=== PATIENT | male | born 1950 | race American Indian/Alaskan Native ===

== ENCOUNTER 2019-02-22 12:25 | Inpatient (IN) | payer MEDICARE ==
[2019-02-22] MEDS ORDERED: NORMODYNE IV ONE (13:17)
[2019-02-22 14:16] LABS: INR 1.23 (0.87-1.13)
[2019-02-22 14:17] LABS: Partial Thromboplastin Time 31.9 Sec. (24.2-36.6)
[2019-02-22 14:27] LABS: Basophils # (Auto) 0.1 K/mm3 (0.0-0.1); Basophils % (Auto) 1.5 % (0.0-1.8); Eosinophils # (Auto) 0.1 K/mm3 (0.0-0.4); Eosinophils % (Auto) 3.5 % (0.0-4.3); Hematocrit 27.8 % (35.5-45.6); Hemoglobin 9.4 gm/dl (11.8-15.2); Lymphocytes # (Auto) 0.5 K/mm3 (1.2-5.4); Lymphocytes % (Auto) 12.1 % (13.4-35.0); Mean Corpuscular HGB Conc 34 % (32-34); Mean Corpuscular Volume 98 fl (84-94); Monocytes # (Auto) 0.3 K/mm3 (0.0-0.8); Monocytes % (Auto) 7.2 % (0.0-7.3); Platelet Count 157 K/mm3 (140-440); Red Blood Count 2.83 M/mm3 (3.65-5.03)
[2019-02-22 14:34] LABS: Calcium 8.6 mg/dL (8.4-10.2)
[2019-02-22 14:36] LABS: Alanine Aminotransferase 22 units/L (7-56); Albumin 3.7 g/dL (3.9-5); BUN/Creatinine Ratio 7; Blood Urea Nitrogen 106 mg/dL (9-20); Calcium 8.6 mg/dL (8.4-10.2); Hemolysis Index 12
[2019-02-22] MEDS ORDERED: HumuLIN R IV ONE (15:14)
[2019-02-22] MEDS ORDERED: D50W (25GM) Syringe IV ONE (15:14)
[2019-02-22] MEDS ORDERED: KIONEX PO ONE (15:14)
--- NOTE | 2019-02-22 15:24 | XRay Report ---
AP CHEST: HISTORY: Short of breath No comparison. Mild cardiomegaly and central pulmonary venous congestion are identified. There is poor visualization of the left hemidiaphragm suggesting infiltrate, atelectasis or small effusion. Otherwise the lungs are clear. The bony thorax is grossly intact. IMPRESSION: Mild cardiomegaly and pulmonary venous congestion. Left lower lobe opacity as described.
[2019-02-22] MEDS ORDERED: CALCIUM GLUCONATE 1,000 MG in NACL 0.9% 100 ML IV ONE (15:51)
--- NOTE | 2019-02-22 15:58 | Consultation ---
History of Present Illness - History of Present Illness 68 year old gentleman with medical history signficant for HTN, DM type 2 with complications, ESRD on hemodialysis MWF at [facility] presenting with complaints of missed hemodialysis for several days. He reports bleeding per rectum has had this before but symptoms have been worsen in the past week. admits to weakness ,fatigue and lethargy , also has shortness of breath. Denies any lower extremity edema. associated orthpnea or PND.continues to make urine. Medications and Allergies Allergies Allergy/AdvReac Type Severity Reaction Status Date / Time Androgenic Anabolic Steroid Allergy Severe Hives Verified 02/22/19 12:57 Active Meds: Active Medications Nicardipine HCl 50 mg/ Sodium (Chloride) 250 mls @ 25 mls/hr IV TITR EDGAR; Protocol Calcium Chloride 1,000 mg/ (Sodium Chloride) 110 mls @ 220 mls/hr IV ONCE ONE Stop: 02/22/19 16:30 Calcium Gluconate 1,000 mg/ (Sodium Chloride) 110 mls @ 660 mls/hr IV ONCE ONE Stop: 02/22/19 16:00 Review of Systems Constitutional: no weight loss, no weight gain Ears, nose, mouth and throat: no deferred, no ear pain Cardiovascular: orthopnea, shortness of breath, dyspnea on exertion, paroxysmal nocturnal dyspnea, no chest pain Respiratory: cough Gastrointestinal: BRBPR, no abdominal pain, no nausea, no vomiting Genitourinary Male: hematuria, no dysuria Musculoskeletal: no neck stiffness, no neck pain Integumentary: no deferred Neurological: no head injury Psychiatric: no anxiety, no memory loss Endocrine: no cold intolerance, no heat intolerance Hematologic/Lymphatic: no easy bruising, no easy bleeding Exam - Vital Signs Vital signs: Vital Signs Temp Pulse Resp BP Pulse Ox 98.5 F 105 H 18 213/107 97 02/22/19 12:30 02/22/19 12:30 02/22/19 12:30 02/22/19 12:30 02/22/19 12:30 - General Appearance General appearance: well-developed, well-nourished EENT: ATNC, PERRL Neck: Present: neck supple Respiratory: Rales, Decreased Breath Sounds, Using Accesory Muscles Heart: regular, S1S2 Gastrointestinal: Present: normal, normoactive bowel sounds Integumentary: no rash Neurologic: no focal deficit, alert and oriented x3 Psychiatric: mood/affect appropriate Results - Lab Results 02/22/19 13:14 02/22/19 13:14 Most recent lab results Calcium 8.6 mg/dL (8.4-10.2) 02/22/19 13:14 Calcium 8.6 mg/dL (8.4-10.2) 02/22/19 13:14 Phosphorus 8.20 mg/dL (2.5-4.5) H 02/22/19 13:14 - Image Kidney/bladder ultrasound: other (I reviewed CXR with pulmonary congestion. ) Assessment and Plan - Patient Problems (1) End stage renal disease Current Visit: Yes Status: Acute Plan to address problem: End-stage renal disease on hemodialysis dialysis access right arm aVF We'll initiate hemodialysis ultrafiltration goal 2-3 L (2) Hyperkalemia, diminished renal excretion Current Visit: Yes Status: Acute Plan to address problem: Hyperkalemia severe Potassium 7.2 we'll give calcium gluconate Obtain EKG Receive insulin and dextrose Emergency hemodialysis (3) Metabolic acidosis Current Visit: Yes Status: Acute Plan to address problem: Metabolic acidosis in the setting of renal failure and missed hemodialysis Will initiate hemodialysis (4) Hypertensive urgency, malignant Current Visit: Yes Status: Acute Plan to address problem: HTN urgency: received hydralazine and labetalol IV will initiate Urgent hemodialysis intiatie oral medications.
[2019-02-22] MEDS ORDERED: CARDENE 50 MG in NACL 0.9% 250ML 230 ML IV SCH (16:00)
--- NOTE | 2019-02-22 16:00 | Emergency Department Report ---
ED GI Bleed HPI - General Chief complaint: GI Bleed Stated complaint: BLOOD IN STOOL/DIALYSIS Time Seen by Provider: 02/22/19 13:12 Source: patient, family, EMS Mode of arrival: Stretcher Limitations: No Limitations - History of Present Illness Initial comments: 68-year-old -[place] male with history of end-stage renal disease on dialysis, history of labile hypertension, presented to ED with elevated blood pressure, stool streaked with bright red blood, for the past week. He was seen by his primary care doctor who discontinue his aspirin 81 mg daily, due to the bleeding. He also was sent to [facility] for a CAT scan without contrast which showed bilateral moderate pleural effusion left more than right, small amount of ascites in the pelvis. Otherwise negative CT of the abdomen and pelvis. Today at dialysis his blood pressure was found to be 220s over 120s, therefore he was sent to ED for further evaluation. MD complaint: blood on toilet paper, gross hematochezia Onset/Timin -: week(s) Radiation: none Severity scale (0 -10): 0 Quality: painless Consistency: constant Improves with: none Worsens with: none Associated Symptoms: epistaxis, headaches - Related Data Allergies Allergy/AdvReac Type Severity Reaction Status Date / Time Androgenic Anabolic Steroid Allergy Severe Hives Verified 02/22/19 12:57 ED Review of Systems ROS: Stated complaint: BLOOD IN STOOL/DIALYSIS Other details as noted in HPI Comment: All other systems reviewed and negative ENT: denies: ear pain, throat pain Cardiovascular: denies: chest pain, palpitations, dyspnea on exertion Gastrointestinal: hematochezia. denies: abdominal pain Genitourinary: denies: urgency, dysuria Musculoskeletal: denies: back pain Skin: denies: rash, lesions ED Past Medical Hx - Social History Smoking Status: Former Smoker ED Physical Exam - General Limitations: No Limitations General appearance: alert - Head Head exam: Present: atraumatic - Eye Eye exam: Present: normal appearance Pupils: Present: normal accommodation - ENT ENT exam: Present: normal exam, normal orophraynx - Neck Neck exam: Present: normal inspection - Respiratory Respiratory exam: Present: normal lung sounds bilaterally - Cardiovascular Cardiovascular Exam: Present: regular rate, normal rhythm - GI/Abdominal GI/Abdominal exam: Present: soft - Rectal Rectal exam: Present: heme (+) stool - Extremities Exam Extremities exam: Present: normal inspection, full ROM, tenderness ED Course Vital Signs 02/22/19 02/22/19 02/22/19 12:30 12:43 12:45 Temperature 98.5 F Pulse Rate 105 H Respiratory 18 Rate Blood Pressure 213/107 213/107 O2 Sat by Pulse 97 97 97 Oximetry 02/22/19 02/22/19 02/22/19 13:00 13:15 13:33 Temperature Pulse Rate 101 H 103 H Respiratory 26 H 25 H Rate Blood Pressure 214/118 214/118 214/118 O2 Sat by Pulse 99 99 97 Oximetry 02/22/19 02/22/19 02/22/19 13:41 13:45 14:00 Temperature Pulse Rate 99 H 95 H 93 H Respiratory 22 21 Rate Blood Pressure 236/121 236/121 187/101 O2 Sat by Pulse 100 96 Oximetry 02/22/19 02/22/19 02/22/19 14:15 14:30 14:45 Temperature Pulse Rate 92 H 94 H 93 H Respiratory 18 21 15 Rate Blood Pressure 187/101 202/113 202/113 O2 Sat by Pulse 98 95 98 Oximetry 02/22/19 02/22/19 02/22/19 15:00 15:15 15:30 Temperature Pulse Rate Respiratory Rate Blood Pressure 204/111 204/111 209/116 O2 Sat by Pulse 94 99 96 Oximetry 02/22/19 02/22/19 02/22/19 15:45 15:47 16:01 Temperature Pulse Rate 94 H Respiratory 24 Rate Blood Pressure 209/116 204/111 O2 Sat by Pulse 96 96 96 Oximetry 02/22/19 02/22/19 02/22/19 16:15 16:30 16:37 Temperature Pulse Rate 96 H 101 H Respiratory 23 29 H Rate Blood Pressure 193/89 190/95 190/95 O2 Sat by Pulse 96 97 Oximetry - Reevaluation(s) Reevaluation #1: 02/22/19 1400 Will be going to dialysis, case discussed with nephrology. ED Medical Decision Making - Lab Data Result diagrams: 02/22/19 13:14 02/22/19 13:14 - EKG Data -: EKG Interpreted by Ca EKG shows normal: sinus rhythm - Radiology Data Radiology results: report reviewed, image reviewed - Medical Decision Making 68-year-old -[place] male with history of end-stage renal disease on dialysis, history of labile hypertension, presented to ED with elevated blood pressure, stool streaked with bright red blood, for the past week. He was seen by his primary care doctor who discontinue his aspirin 81 mg daily, due to the bleeding. He also was sent to [facility] associates for a CAT scan without contrast which showed bilateral moderate pleural effusion left more than right, small amount of ascites in the pelvis. Otherwise negative CT of the abdomen and pelvis. Today at dialysis his blood pressure was found to be 220s over 120s, therefore he was sent to ED for further evaluation. Rectal exam showed blood streak stool Discussed case with nephrology, patient will be going for emergent dialysis is due to potassium was 7.4. In ED patient received kayaxelate 60mg po, insulin 5un iv, d50, camron chloride 1gm. Critical Care Time: Yes Critical care time in (mins) excluding proc time.: 30 Critical care attestation.: If time is entered above; I have spent that time in minutes in the direct care of this critically ill patient, excluding procedure time. ED Disposition Clinical Impression: Acute hyperkalemia Fluid overload Qualifiers: Hypervolemia type: other Qualified Code(s): E87.79 - Other fluid overload Disposition: DC-09 OP ADMIT IP TO THIS HOSP Is pt being admited?: Yes Does the pt Need Aspirin: No Condition: Critical
[2019-02-22] MEDS ORDERED: CALCIUM CHLORIDE 1,000 MG in NACL 0.9% 100 ML IV ONE (16:01)
[2019-02-22] MEDS ORDERED: APRESOLINE IV ONE (16:21)
[2019-02-22] MEDS ORDERED: APRESOLINE ONE (16:36)
[2019-02-22 18:20] LABS: Hepatitis B Surface Antigen Indeterminate (Negative); Hepatitis C Virus Antibody Reactive (NonReactive)
[2019-02-22] MEDS: NORMODYNE IV PRN (19:53)
[2019-02-22] MEDS ORDERED: SODIUM CHLORIDE FLUSH SYRINGE 10 ML IV PRN (21:43)
[2019-02-22] MEDS ORDERED: DILAUDID IV PRN (21:43)
[2019-02-22] MEDS ORDERED: ZOFRAN IV PRN (21:43)
[2019-02-22] MEDS ORDERED: TYLENOL PO PRN (21:43)
[2019-02-22] MEDS: NORVASC PO SCH (22:10)
[2019-02-22] MEDS: SODIUM CHLORIDE FLUSH SYRINGE 10 ML IV SCH (22:24)
[2019-02-22] MEDS: PROTONIX 80 MG in NACL 0.9% 100 ML IV SCH (22:51)
[2019-02-22] MEDS: APRESOLINE IV PRN (22:51)
[2019-02-22 23:59] LABS: Hematocrit 28.2 % (35.5-45.6); Hemoglobin 10.1 gm/dl (11.8-15.2)
[2019-02-23 00:44] LABS: Calcium 9.9 mg/dL (8.4-10.2)
[2019-02-23 06:00] LABS: Basophils % (Auto) 0.7 % (0.0-1.8); Eosinophils % (Auto) 0.9 % (0.0-4.3); Hematocrit 29.2 % (35.5-45.6); Hemoglobin 9.8 gm/dl (11.8-15.2); Lymphocytes # (Auto) 0.4 K/mm3 (1.2-5.4); Lymphocytes % (Auto) 7.9 % (13.4-35.0); Mean Corpuscular HGB Conc 34 % (32-34); Mean Corpuscular Volume 95 fl (84-94); Monocytes # (Auto) 0.5 K/mm3 (0.0-0.8); Monocytes % (Auto) 8.5 % (0.0-7.3); Platelet Count 170 K/mm3 (140-440); Red Blood Count 3.07 M/mm3 (3.65-5.03); Red Cell Distribution Width 16.6 % (13.2-15.2)
[2019-02-23 06:26] LABS: Albumin 3.6 g/dL (3.9-5); Calcium 9.1 mg/dL (8.4-10.2)
--- NOTE | 2019-02-23 06:41 | History and Physical Report ---
History of Present Illness Date of examination: 02/22/19 Date of admission: 02/22/19 15:57 Chief complaint: Missed HD High BP --sent from dialysis center History of present illness: 68-year-old -Bangl[place] male with history of end-stage renal disease on dialysis, history of labile hypertension, presented to ED with elevated blood pressure, stool streaked with bright red blood, for the past week. He was seen by his primary care doctor who discontinue his aspirin 81 mg daily, due to the bleeding. He also was sent to [facility] associates for a CAT scan without contrast which showed bilateral moderate pleural effusion left more than right, small amount of ascites in the pelvis. Otherwise negative CT of the abdomen and pelvis. Today at dialysis his blood pressure was found to be 220s over 120s, therefore he was sent to ED for further evaluation. Past History Past Medical History: ESRD, hypertension Past Surgical History: Other Social history: smoking Family history: hypertension Medications and Allergies Allergies Allergy/AdvReac Type Severity Reaction Status Date / Time Androgenic Anabolic Steroid Allergy Severe Hives Verified 02/22/19 12:57 Active Meds: Active Medications Acetaminophen (Tylenol) 650 mg PO Q4H PRN PRN Reason: Pain MILD(1-3)/Fever >100.5/MICHELE Amlodipine Besylate (Norvasc) 5 mg PO QDAY EDGAR Last Admin: 02/22/19 22:10 Dose: 5 mg Documented by: Hydralazine HCl (Apresoline) 10 mg IV Q3H PRN PRN Reason: Blood Pressure Last Admin: 02/22/19 22:51 Dose: 10 mg Documented by: Hydromorphone HCl (Dilaudid) 0.5 mg IV Q3H PRN PRN Reason: Pain , Severe (7-10) Nicardipine HCl 50 mg/ Sodium (Chloride) 250 mls @ 25 mls/hr IV TITR EDGAR; Protocol Pantoprazole Sodium 80 mg/ (Sodium Chloride) 100 mls @ 10 mls/hr IV DIRECT EDGAR Last Admin: 02/22/19 22:51 Dose: 8 mg/hr, 10 mls/hr Documented by: Labetalol HCl (Normodyne) 20 mg IV PRETR PRN PRN Reason: Blood Pressure Last Admin: 02/22/19 19:53 Dose: 20 mg Documented by: Ondansetron HCl (Zofran) 4 mg IV Q8H PRN PRN Reason: Nausea And Vomiting Sodium Chloride (Sodium Chloride Flush Syringe 10 Ml) 10 ml IV BID EDGAR Last Admin: 02/22/19 22:24 Dose: 10 ml Documented by: Sodium Chloride (Sodium Chloride Flush Syringe 10 Ml) 10 ml IV PRN PRN PRN Reason: LINE FLUSH Review of Systems All systems: negative Gastrointestinal: BRBPR, melena Exam - Constitutional Vitals: Temp Pulse Resp BP Pulse Ox 98.3 F 104 H 18 112/66 97 02/23/19 05:02 02/23/19 05:02 02/23/19 05:02 02/23/19 05:02 02/23/19 05:02 General appearance: Present: no acute distress, well-nourished - EENT Eyes: Present: PERRL ENT: hearing intact, clear oral mucosa - Neck Neck: Present: supple, normal ROM - Respiratory Respiratory effort: normal Respiratory: bilateral: CTA - Cardiovascular Heart rate: 78 Rhythm: regular Heart Sounds: Present: S1 & S2. Absent: rub, click - Extremities Extremities: no ischemia, pulses intact, pulses symmetrical, No edema Peripheral Pulses: within normal limits - Abdominal General gastrointestinal: Present: soft, non-tender, non-distended, normal bowel sounds Male genitourinary: Present: normal - Rectal Rectal Exam: deferred - Integumentary Integumentary: Present: clear, warm, dry - Musculoskeletal Musculoskeletal: gait normal, strength equal bilaterally - Psychiatric Psychiatric: appropriate mood/affect, intact judgment & insight - Neurologic Neurologic: CNII-XII intact, moves all extremities - Allied Health Allied health notes reviewed: nursing, case management Results - Labs CBC & Chem 7: 02/23/19 05:39 02/23/19 05:39 Labs: Laboratory Last Values WBC 5.5 K/mm3 (4.5-11.0) 02/23/19 05:39 RBC 3.07 M/mm3 (3.65-5.03) L 02/23/19 05:39 Hgb 9.8 gm/dl (11.8-15.2) L 02/23/19 05:39 Hct 29.2 % (35.5-45.6) L 02/23/19 05:39 MCV 95 fl (84-94) H 02/23/19 05:39 MCH 32 pg (28-32) 02/23/19 05:39 MCHC 34 % (32-34) 02/23/19 05:39 RDW 16.6 % (13.2-15.2) H 02/23/19 05:39 Plt Count 170 K/mm3 (140-440) 02/23/19 05:39 Lymph % (Auto) 7.9 % (13.4-35.0) L 02/23/19 05:39 [place] % (Auto) 8.5 % (0.0-7.3) H 02/23/19 05:39 Eos % (Auto) 0.9 % (0.0-4.3) 02/23/19 05:39 Baso % (Auto) 0.7 % (0.0-1.8) 02/23/19 05:39 Lymph # 0.4 K/mm3 (1.2-5.4) L 02/23/19 05:39 [place] # 0.5 K/mm3 (0.0-0.8) 02/23/19 05:39 Eos # 0.0 K/mm3 (0.0-0.4) 02/23/19 05:39 Baso # 0.0 K/mm3 (0.0-0.1) 02/23/19 05:39 Seg Neutrophils % 82.0 % (40.0-70.0) H 02/23/19 05:39 Seg Neutrophils # 4.5 K/mm3 (1.8-7.7) 02/23/19 05:39 PT 15.2 Sec. (12.2-14.9) H 02/22/19 13:23 INR 1.23 (0.87-1.13) H 02/22/19 13:23 APTT 31.9 Sec. (24.2-36.6) 02/22/19 13:23 Sodium 134 mmol/L (137-145) L 02/23/19 05:39 Potassium 4.5 mmol/L (3.6-5.0) 02/23/19 05:39 Chloride 91.3 mmol/L (98-107) L 02/23/19 05:39 Carbon Dioxide 24 mmol/L (22-30) 02/23/19 05:39 23 mmol/L 02/23/19 05:39 BUN 32 mg/dL (9-20) H 02/23/19 05:39 6.7 mg/dL (0.8-1.5) H 02/23/19 05:39 Estimated GFR 10 ml/min 02/23/19 05:39 5 % 02/23/19 05:39 Glucose 96 mg/dL (75-100) 02/23/19 05:39 5.2 % (4-6) 02/22/19 23:36 Calcium 9.1 mg/dL (8.4-10.2) 02/23/19 05:39 Phosphorus 8.20 mg/dL (2.5-4.5) H 02/22/19 13:14 0.60 mg/dL (0.1-1.2) 02/23/19 05:39 AST 36 units/L (5-40) 02/23/19 05:39 ALT 46 units/L (7-56) 02/23/19 05:39 94 units/L (35-129) 02/23/19 05:39 NT-Pro-B Natriuret Pep > 19719 pg/mL (0-900) H 02/22/19 13:14 6.6 g/dL (6.3-8.2) 02/23/19 05:39 3.6 g/dL (3.9-5) L 02/23/19 05:39 1.2 % 02/23/19 05:39 Hepatitis A IgM Ab Non-reactive (NonReactive) 02/22/19 17:34 Hep Bs Antigen Non-reactive (Negative) 02/22/19 21:40 Hep B Core IgM Ab Non-reactive (NonReactive) 02/22/19 17:34 Reactive (NonReactive) A 02/22/19 17:34 Short CBC 02/22/19 02/22/19 02/23/19 Range/Units 13:14 23:36 05:39 WBC 4.2 L 5.5 (4.5-11.0) K/mm3 Hgb 9.4 L 10.1 L 9.8 L (11.8-15.2) gm/dl Hct 27.8 L 28.2 L 29.2 L (35.5-45.6) % Plt Count 157 170 (140-440) K/mm3 BMP 06/02/22/19 02/22/19 13:14 13:14 23:36 Sodium 133 L 133 L 138 Potassium 7.1 H* 7.2 H* 3.9 D Chloride 92.7 L 93.2 L 93.3 L Carbon Dioxide 16 L 16 L 22 BUN 106 H 103 H 28 H Creatinine 14.5 H 14.5 H 5.8 H D Glucose 148 H 151 H 93 Calcium 8.6 8.6 9.9 D 02/23/19 05:39 Sodium 134 L Potassium 4.5 Chloride 91.3 L Carbon Dioxide 24 BUN 32 H Creatinine 6.7 H Glucose 96 Calcium 9.1 Liver Function 02/22/19 02/23/19 Range/Units 13:14 05:39 Total Bilirubin 0.30 0.60 (0.1-1.2) mg/dL AST 12 36 (5-40) units/L ALT 22 46 (7-56) units/L Alkaline Phosphatase 86 94 (35-129) units/L Albumin 3.7 L 3.6 L (3.9-5) g/dL - Imaging and Cardiology EKG: report reviewed Chest x-ray: report reviewed Imaging and Cardiology: CXR IMPRESSION: Mild cardiomegaly and pulmonary venous congestion. Left lower lobe opacity as described. Assessment and Plan Advance Directives: Yes (Full code) VTE prophylaxis?: Mechanical Plan of care discussed with patient/family: Yes - Patient Problems (1) Hypertensive urgency, malignant Current Visit: Yes Status: Acute Plan to address problem: IV Hydralazine q3 h Prn Cont antihypertensives Catapress patch initiated (2) GI bleed Current Visit: Yes Status: Acute Qualifiers: GI bleed type/associated pathology: unspecified gastrointestinal hemorrhage type Qualified Code(s): K92.2 - Gastrointestinal hemorrhage, unspecified Plan to address problem: Monitor H/h GI consilt IV protonix (3) Acute hyperkalemia Current Visit: Yes Status: Acute Plan to address problem: Being rtaken for emergent HD Low K bath (4) End stage renal disease Current Visit: Yes Status: Chronic Plan to address problem: COnt HD (5) DVT prophylaxis Current Visit: Yes Status: Acute Plan to address problem: On SCD's
[2019-02-23] MEDS: PROTONIX 80 MG in NACL 0.9% 100 ML IV SCH (08:17)
[2019-02-23] MEDS ORDERED: CATAPRES-TTS PATCH TD SCH (10:00)
[2019-02-23] MEDS: SODIUM CHLORIDE FLUSH SYRINGE 10 ML IV SCH ×2 (10:09→22:43)
[2019-02-23] MEDS: NORVASC PO SCH (10:09)
--- NOTE | 2019-02-23 11:54 | Progress Note ---
Subjective Interval history: Patient was seen today for follow-up on multiple renal related issues Events of this hospitalization noted Admitted with missing dialysis treatment severely hyperkalemic has had metabolic acidosis Noncompliant patient Patient denies having any chest pain pressure or shortness of breath Vitals labs intake output medications were reviewed Social history: Reviewed Allergies: Reviewed Family history: Reviewed Physical examination HEENT: Oral mucosa moist no pallor or icterus Neck: Supple no JVD Chest: Clear to auscultation anteriorly CVS: Regular rate and rhythm S1 and S2 heard Abdomen: Soft nontender no suprapubic masses no organomegaly appreciable Extremity: Dry skin less than 1+ peripheral edema Musculoskeletal: No joint effusion noted in knees and ankle Neurological: Alert awake Dermatology: No petechial rashes Psychiatry: No evidence of any agitation and aggression noted Assessment and plan; End-stage renal disease: Patient will continue with hemodialysis on Tuesday and Tuesday schedule, current access is a right arm AV fistula He will need second hemodialysis treatment today Patient admitted after missing several days of dialysis Reported to have bleeding per rectum: Needs follow-up with gastroenterology Anemia in end-stage renal disease: Monitor hemoglobin and hematocrit, eryth ropoietin as needed Secondary hyperparathyroidism periodically check phosphorus and PTH level, goal phosphorus less than 5.5 PTH less than 600, educated about renal osteodystrophy Hypertension and volume: , Adjust medications as needed, ultrafiltration as tolerated keep systolic blood pressure above 100 Hyperkalemia patient's admission potassium was 7.2 bicarbonate was 16 BUN 106 creatinine was 14.5 Malnutrition risk: High please consider high protein diet as well as nutrition follow-up, patient needs at least 1.5 g protein per KG body weight Dialysis access: Currently working well, discussed about monitoring Discussed about issues with noncompliance with dialysis and high mortality risk Dietary counseling and education: Done at length to improve outcome with end- stage renal disease Patient was also educated about the hospital related comorbidities Overall prognosis appears to be very poor, patient is high mortality risk and have adequately counseled and educated this patient is prognosis is going to depend on his compliance have educated him to take responsibility for his health and educated himself, Patient was adequately counseled and educated regarding multiple renal related issues Pertinent lab findings were discussed with patient and patient does exhibit good understanding of renal issues. We'll continue to follow and make recommendation from renal standpoint Objective - Vital Signs Vital signs: Vital Signs - 12hr 02/23/19 02/23/19 02/23/19 05:02 07:30 07:31 Temperature 98.3 F 98.3 F 98.3 F Pulse Rate 104 H 104 H Respiratory 18 18 18 Rate Blood Pressure 112/66 171/88 O2 Sat by Pulse 97 96 Oximetry 02/23/19 10:47 Temperature 98.7 F Pulse Rate 101 H Respiratory 18 Rate Blood Pressure 175/99 O2 Sat by Pulse 96 Oximetry - Lab 02/23/19 05:39 02/23/19 05:39 Most recent lab results Calcium 9.1 mg/dL (8.4-10.2) 02/23/19 05:39 Phosphorus 8.20 mg/dL (2.5-4.5) H 02/22/19 13:14 Medications & Allergies - Medications Allergies/Adverse Reactions: Allergies Androgenic Anabolic Steroid Allergy (Severe, Verified 02/22/19 12:57) Hives Active Medications: Generic Name Dose Route Start Last Admin Trade Name Freq PRN Reason Stop Dose Admin Acetaminophen 650 mg 02/22/19 21:43 Tylenol PO Q4H PRN Pain MILD(1-3)/Fever >100.5/MICHELE Amlodipine Besylate 5 mg 02/22/19 21:00 02/23/19 10:09 Norvasc PO 5 mg QDAY EDGAR Administration Clonidine HCl 0.1 mg 02/23/19 10:00 02/23/19 10:09 Catapres-Tts Patch TD 0.1 mg Fr EDGAR Administration Hydralazine HCl 10 mg 02/22/19 21:46 02/22/19 22:51 Apresoline IV 10 mg Q3H PRN Administration Blood Pressure Hydromorphone HCl 0.5 mg 02/22/19 21:43 Dilaudid IV Q3H PRN Pain , Severe (7-10) Nicardipine HCl 50 mg/ Sodium 250 mls @ 25 mls/hr 02/22/19 16:00 Chloride IV TITR EDGAR Protocol 5 MG/HR Pantoprazole Sodium 80 mg/ 100 mls @ 10 mls/hr 02/22/19 22:00 02/23/19 08:17 Sodium Chloride IV 8 mg/hr DIRECT EDGAR 10 mls/hr Administration 8 MG/HR Labetalol HCl 20 mg 02/22/19 17:29 02/22/19 19:53 Normodyne IV 20 mg PRETR PRN Administration Blood Pressure Ondansetron HCl 4 mg 02/22/19 21:43 Zofran IV Q8H PRN Nausea And Vomiting Sodium Chloride 10 ml 02/22/19 22:00 02/23/19 10:09 Sodium Chloride Flush Syringe 10 Ml IV 10 ml BID EDGAR Administration Sodium Chloride 10 ml 02/22/19 21:43 Sodium Chloride Flush Syringe 10 Ml IV PRN PRN LINE FLUSH
[2019-02-23 15:12] LABS: Hematocrit 29.8 % (35.5-45.6); Hemoglobin 9.9 gm/dl (11.8-15.2)
--- NOTE | 2019-02-23 15:21 | Gastroenterology Consultation ---
<BRIANA MCKENNA - Last Filed: 02/23/19 15:52> History of Present Illness - Reason for Consult Consult date: 02/23/19 GI bleed Requesting physician: JOSE MANUEL DAY - History of Present Illness Patient is a 68 y/o male with PMH of ESRD on HD, HTN, prostate cancer (s/p radiation; 2012 or 2013 per daughter), and medical non-compliance who was adm itted after missing dialysis with hypertensive urgency and acute hyperkalemia. GI has been consulted for GI bleed 2/ patient c/o blood streaked stool. This afternoon, patient was resting in bed w/o acute distress and family at bedside. He reports bright red blood mixed with stool, on TP, and in toilet for the last coupl of days (unable to give exact onset of bleeding; noted to be a poor historian). No BM or signs of bleeding so far today. Admits to wt loss but is unable to tell my amount or time frame. Denies fever, CP, SOB, abd pain, N/V, hematemesis, melena, diarrhea, or constipation. Was previously taking daily ASA at home but denies hx of PUD or liver disease. No hx or Fhx of IBD or colon CA. Patient daughter states that the patient underwent a recent colonoscopy at [facility] (~6-8 months ago) with negative results (records unavailable). She is unsure if he also had an EGD at that time. According to chart review, patient has a recent abd CT that showed showed bilateral moderate pleural effusion left more than right and small amount of ascites in the pelvis, otherwise negative. Past History Past Medical History: ESRD, hypertension, other (prostate cancer (s/p radiation in 2012 or 2013 per daughter report)) Past Surgical History: Other Social history: smoking Family history: hypertension Medications and Allergies Allergies Allergy/AdvReac Type Severity Reaction Status Date / Time Androgenic Anabolic Steroid Allergy Severe Hives Verified 02/22/19 12:57 Active Meds: Active Medications Acetaminophen (Tylenol) 650 mg PO Q4H PRN PRN Reason: Pain MILD(1-3)/Fever >100.5/MICHELE Amlodipine Besylate (Norvasc) 5 mg PO QDAY EDGAR Last Admin: 02/23/19 10:09 Dose: 5 mg Documented by: Clonidine HCl (Catapres-Tts Patch) 0.1 mg TD Fr EDGAR Last Admin: 02/23/19 10:09 Dose: 0.1 mg Documented by: Hydralazine HCl (Apresoline) 10 mg IV Q3H PRN PRN Reason: Blood Pressure Last Admin: 02/22/19 22:51 Dose: 10 mg Documented by: Hydromorphone HCl (Dilaudid) 0.5 mg IV Q3H PRN PRN Reason: Pain , Severe (7-10) Nicardipine HCl 50 mg/ Sodium (Chloride) 250 mls @ 25 mls/hr IV TITR EDGAR; Prot ocol Pantoprazole Sodium 80 mg/ (Sodium Chloride) 100 mls @ 10 mls/hr IV DIRECT EDGAR Last Admin: 02/23/19 08:17 Dose: 8 mg/hr, 10 mls/hr Documented by: Labetalol HCl (Normodyne) 20 mg IV PRETR PRN PRN Reason: Blood Pressure Last Admin: 02/22/19 19:53 Dose: 20 mg Documented by: Ondansetron HCl (Zofran) 4 mg IV Q8H PRN PRN Reason: Nausea And Vomiting Sodium Chloride (Sodium Chloride Flush Syringe 10 Ml) 10 ml IV BID EDGAR Last Admin: 02/23/19 10:09 Dose: 10 ml Documented by: Sodium Chloride (Sodium Chloride Flush Syringe 10 Ml) 10 ml IV PRN PRN PRN Reason: LINE FLUSH medications reviewed/updated as required Review of Systems - Review of Systems All systems: negative Constitutional: weight loss Gastrointestinal: BRBPR, no abdominal pain, no nausea, no vomiting, no hematemesis, no melena Exam - Constitutional Vital Signs: Temp Pulse Resp BP Pulse Ox 98.7 F 101 H 18 175/99 96 02/23/19 10:47 02/23/19 10:47 02/23/19 10:47 02/23/19 10:47 02/23/19 10:47 General appearance: no acute distress - Respiratory Respiratory effort: normal - Cardiovascular Rhythm: other (tachycardia) - Gastrointestinal General gastrointestinal: Present: soft, non-tender, non-distended, normal bowel sounds - Labs CBC & Chem 7: 02/23/19 14:41 02/23/19 05:39 Lab Results: Laboratory Results - last 24 hr 02/22/19 02/22/19 02/22/19 13:14 17:34 21:40 WBC RBC Hgb Hct MCV MCH MCHC RDW Plt Count Lymph % (Auto) [place] % (Auto) Eos % (Auto) Baso % (Auto) Lymph # [place] # Eos # Baso # Seg Neutrophils % Seg Neutrophils # Sodium Potassium Chloride Carbon Dioxide Anion Gap BUN Creatinine Estimated GFR BUN/Creatinine Ratio Glucose Hemoglobin A1c Calcium Total Bilirubin AST ALT Alkaline Phosphatase NT-Pro-B Natriuret Pep > 55588 H Total Protein Albumin Albumin/Globulin Ratio Hepatitis A IgM Ab Non-reactive Hep Bs Antigen Indeterminate Non-reactive Hep B Core IgM Ab Non-reactive Hepatitis C Antibody Reactive A 02/22/19 02/22/19 02/22/19 23:36 23:36 23:36 WBC RBC Hgb 10.1 L Hct 28.2 L MCV MCH MCHC RDW Plt Count Lymph % (Auto) [place] % (Auto) Eos % (Auto) Baso % (Auto) Lymph # [place] # Eos # Baso # Seg Neutrophils % Seg Neutrophils # Sodium 138 Potassium 3.9 D Chloride 93.3 L Carbon Dioxide 22 Anion Gap 27 BUN 28 H Creatinine 5.8 H D Estimated GFR 12 BUN/Creatinine Ratio 5 Glucose 93 Hemoglobin A1c 5.2 Calcium 9.9 D Total Bilirubin AST ALT Alkaline Phosphatase NT-Pro-B Natriuret Pep Total Protein Albumin Albumin/Globulin Ratio Hepatitis A IgM Ab Hep Bs Antigen Hep B Core IgM Ab Hepatitis C Antibody 02/23/19 02/23/19 02/23/19 05:39 05:39 14:41 WBC 5.5 RBC 3.07 L Hgb 9.8 L 9.9 L Hct 29.2 L 29.8 L MCV 95 H MCH 32 MCHC 34 RDW 16.6 H Plt Count 170 Lymph % (Auto) 7.9 L [place] % (Auto) 8.5 H Eos % (Auto) 0.9 Baso % (Auto) 0.7 Lymph # 0.4 L [place] # 0.5 Eos # 0.0 Baso # 0.0 Seg Neutrophils % 82.0 H Seg Neutrophils # 4.5 Sodium 134 L Potassium 4.5 Chloride 91.3 L Carbon Dioxide 24 Anion Gap 23 BUN 32 H Creatinine 6.7 H Estimated GFR 10 BUN/Creatinine Ratio 5 Glucose 96 Hemoglobin A1c Calcium 9.1 Total Bilirubin 0.60 AST 36 ALT 46 Alkaline Phosphatase 94 NT-Pro-B Natriuret Pep Total Protein 6.6 Albumin 3.6 L Albumin/Globulin Ratio 1.2 Hepatitis A IgM Ab Hep Bs Antigen Hep B Core IgM Ab Hepatitis C Antibody Assessment and Plan 1.GI bleed 2.anemia 3.H/o prostate CA (s/p radiation) -H/H 9.9/29.8-stable (unknown baseline; likely component of chronic anemia 2/2 ESRD) -continue to monitor H/H and transfuse as needed -currently HD stable -patient reports bright red blood mixed with stool, on TP with wiping, and in toilet for last couple of days. No active signs of bleeding today. No hematemesis or melena. Denies abd pain or N/V. Tolerating diet. -etiology unclear- likely anorectal in origin vs other -daughter reports patient recently underwent a colonoscopy at [facility] (~6-8 months ago) with negative results; unknown if he also had an EGD- records currently unavailable -no plan for scope at this time unless overt bleeding develops -will request records from [facility] to review -iron studies in am -continue PPI and supportive care -will follow 3.Hepatitis C antibody positive -LFTs WNL; no known hx of liver disease -further workup/treatment as outpatient 4.ESRD on HD 5.HTN <HUMPHREY CORTEZ - Last Filed: 02/23/19 17:58> History of Present Illness - History of Present Illness Patient seen and examined. I have reviewed the advanced practitioners assessment and plan and agree with it with the following additions: Patient with stable hemoglobin, minimal amount of blood in the stool as well as reported recent colonoscopy which was negative. Abdomen soft and benign. No major GI blood loss, will request outside records from [facility]'s recent colonoscopy and patient may follow up as an outpatient unless there is significant overt bleeding has suspect inpatient colonoscopy will not be required Patient should also follow up as an outpatient for further evaluation of his hepatitis C antibody positive Medications and Allergies Active Meds: Active Medications Acetaminophen (Tylenol) 650 mg PO Q4H PRN PRN Reason: Pain MILD(1-3)/Fever >100.5/MICHELE Amlodipine Besylate (Norvasc) 5 mg PO QDAY [facility] Last Admin: 02/23/19 10:09 Dose: 5 mg Documented by: Clonidine HCl (Catapres-Tts Patch) 0.1 mg TD Fr [facility] Last Admin: 02/23/19 10:09 Dose: 0.1 mg Documented by: Hydralazine HCl (Apresoline) 10 mg IV Q3H PRN PRN Reason: Blood Pressure Last Admin: 02/22/19 22:51 Dose: 10 mg Documented by: Hydromorphone HCl (Dilaudid) 0.5 mg IV Q3H PRN PRN Reason: Pain , Severe (7-10) Nicardipine HCl 50 mg/ Sodium (Chloride) 250 mls @ 25 mls/hr IV TITR EDGAR; Protocol Labetalol HCl (Normodyne) 20 mg IV PRETR PRN PRN Reason: Blood Pressure Last Admin: 02/23/19 17:30 Dose: 20 mg Documented by: Ondansetron HCl (Zofran) 4 mg IV Q8H PRN PRN Reason: Nausea And Vomiting Pantoprazole Sodium (Protonix) 40 mg PO QDAY EDGAR Sodium Chloride (Sodium Chloride Flush Syringe 10 Ml) 10 ml IV BID EDGAR Last Admin: 02/23/19 10:09 Dose: 10 ml Documented by: Sodium Chloride (Sodium Chloride Flush Syringe 10 Ml) 10 ml IV PRN PRN PRN Reason: LINE FLUSH Exam - Constitutional Vital Signs: Temp Pulse Resp BP Pulse Ox 97.9 F 102 H 18 190/93 96 02/23/19 15:29 02/23/19 17:30 02/23/19 15:29 02/23/19 17:30 02/23/19 15:29 - Labs CBC & Chem 7: 02/23/19 14:41 02/23/19 05:39 Lab Results: Laboratory Results - last 24 hr 02/22/19 02/22/19 02/22/19 17:34 21:40 23:36 WBC RBC Hgb Hct MCV MCH MCHC RDW Plt Count Lymph % (Auto) [place] % (Auto) Eos % (Auto) Baso % (Auto) Lymph # [place] # Eos # Baso # Seg Neutrophils % Seg Neutrophils # Sodium Potassium Chloride Carbon Dioxide Anion Gap BUN Creatinine Estimated GFR BUN/Creatinine Ratio Glucose Hemoglobin A1c 5.2 Calcium Total Bilirubin AST ALT Alkaline Phosphatase Total Protein Albumin Albumin/Globulin Ratio Hepatitis A IgM Ab Non-reactive Hep Bs Antigen Indeterminate Non-reactive Hep B Core IgM Ab Non-reactive Hepatitis C Antibody Reactive A 02/22/19 02/22/19 02/23/19 23:36 23:36 05:39 WBC 5.5 RBC 3.07 L Hgb 10.1 L 9.8 L Hct 28.2 L 29.2 L MCV 95 H MCH 32 MCHC 34 RDW 16.6 H Plt Count 170 Lymph % (Auto) 7.9 L [place] % (Auto) 8.5 H Eos % (Auto) 0.9 Baso % (Auto) 0.7 Lymph # 0.4 L [place] # 0.5 Eos # 0.0 Baso # 0.0 Seg Neutrophils % 82.0 H Seg Neutrophils # 4.5 Sodium 138 Potassium 3.9 D Chloride 93.3 L Carbon Dioxide 22 Anion Gap 27 BUN 28 H Creatinine 5.8 H D Estimated GFR 12 BUN/Creatinine Ratio 5 Glucose 93 Hemoglobin A1c Calcium 9.9 D Total Bilirubin AST ALT Alkaline Phosphatase Total Protein Albumin Albumin/Globulin Ratio Hepatitis A IgM Ab Hep Bs Antigen Hep B Core IgM Ab Hepatitis C Antibody 02/23/19 02/23/19 05:39 14:41 WBC RBC Hgb 9.9 L Hct 29.8 L MCV MCH MCHC RDW Plt Count Lymph % (Auto) [place] % (Auto) Eos % (Auto) Baso % (Auto) Lymph # [place] # Eos # Baso # Seg Neutrophils % Seg Neutrophils # Sodium 134 L Potassium 4.5 Chloride 91.3 L Carbon Dioxide 24 Anion Gap 23 BUN 32 H Creatinine 6.7 H Estimated GFR 10 BUN/Creatinine Ratio 5 Glucose 96 Hemoglobin A1c Calcium 9.1 Total Bilirubin 0.60 AST 36 ALT 46 Alkaline Phosphatase 94 Total Protein 6.6 Albumin 3.6 L Albumin/Globulin Ratio 1.2 Hepatitis A IgM Ab Hep Bs Antigen Hep B Core IgM Ab Hepatitis C Antibody
--- NOTE | 2019-02-23 16:52 | Progress Note ---
Assessment and Plan Assessment and plan: Patient is a 68 y/o man with history of ESRD on HD, HTN, prostate cancer, hypertension, and medical non-compliance who was admitted after missing dialysis with hypertensive urgency, acute hyperkalemia and BRBPR. I spoke with his [facility] PCP Dr. Urbano at [phone]. His last hemoglobin was 10.7 on 02/21/19 at [facility]. He was seen by his primary care doctor who discontinue his aspirin 81 mg daily, due to nose bleeding. He also was sent to [facility] radiology associates for a CAT scan without contrast which showed bilateral moderate pleural effusion left more than right, small amount of ascites in the pelvis. Otherwise negative CT of the abdomen and pelvis. Today at dialysis his blood pressure was found to be 220s over 120s; therefore; he was sent to ED for further evaluation. (1) Hypertensive urgency, malignant Current Visit: Yes Status: Acute Plan to address problem: IV Hydralazine q3 h Prn Cont antihypertensives Catapress patch initiated (2) GI bleed Current Visit: Yes Status: Acute Qualifiers: GI bleed type/associated pathology: unspecified gastrointestinal hemorrhage type Qualified Code(s): K92.2 - Gastrointestinal hemorrhage, unspecified Plan to address problem: Monitor H/h GI consilt IV protonix (3) Acute hyperkalemia Current Visit: Yes Status: Acute Plan to address problem: Being rtaken for emergent HD Low K bath (4) End stage renal disease Current Visit: Yes Status: Chronic Plan to address problem: COnt HD (5) DVT prophylaxis Current Visit: Yes Status: Acute Plan to address problem: On SCD's History Interval history: Patient was seen and examined. Follow-up on current diagnosis. No overnight events reported to me. Patient denies any chest pain, shortness breath, nausea/vomiting or severe headaches. Imaging, nursing note, chart, labs and old chart reviewed. Discussed with patient. Hospitalist Physical - Physical exam Narrative exam: Gen: thin frail, bmi 18.8, NAD, Awake, Alert, Orientated HEENT: NCAT, EOMI, PERRL, OP Clear Neck: supple, no adenopathy, no thyromegaly, no JVD CVS/Heart: RRR, normal S1S2, pulses present bilaterally Chest/Lungs: CTA B, Symmetrical chest expansion, good air entry bilaterally GI/Abdomen: soft, NTND, good bowel sounds, no guarding or rebound /Bladder: no suprapubic tenderness, no CVA or paraspinal tenderness Extermity/Skin: no c/c/e, no obvious rash MSK: FROM x 4 Neuro: CN 2-12 grossly intact, no new focal deficits Psych: calm - Constitutional Vitals: Temp Pulse Resp BP Pulse Ox 97.9 F 102 H 18 182/96 96 02/23/19 15:29 02/23/19 15:29 02/23/19 15:29 02/23/19 15:29 02/23/19 15:29 General appearance: Present: no acute distress, well-nourished Results - Labs CBC & Chem 7: 02/23/19 14:41 02/23/19 05:39 Labs: Laboratory Last Values WBC 5.5 K/mm3 (4.5-11.0) 02/23/19 05:39 RBC 3.07 M/mm3 (3.65-5.03) L 02/23/19 05:39 Hgb 9.9 gm/dl (11.8-15.2) L 02/23/19 14:41 Hct 29.8 % (35.5-45.6) L 02/23/19 14:41 MCV 95 fl (84-94) H 02/23/19 05:39 MCH 32 pg (28-32) 02/23/19 05:39 MCHC 34 % (32-34) 02/23/19 05:39 RDW 16.6 % (13.2-15.2) H 02/23/19 05:39 Plt Count 170 K/mm3 (140-440) 02/23/19 05:39 Lymph % (Auto) 7.9 % (13.4-35.0) L 02/23/19 05:39 [place] % (Auto) 8.5 % (0.0-7.3) H 02/23/19 05:39 Eos % (Auto) 0.9 % (0.0-4.3) 02/23/19 05:39 Baso % (Auto) 0.7 % (0.0-1.8) 02/23/19 05:39 Lymph # 0.4 K/mm3 (1.2-5.4) L 02/23/19 05:39 [place] # 0.5 K/mm3 (0.0-0.8) 02/23/19 05:39 Eos # 0.0 K/mm3 (0.0-0.4) 02/23/19 05:39 Baso # 0.0 K/mm3 (0.0-0.1) 02/23/19 05:39 Seg Neutrophils % 82.0 % (40.0-70.0) H 02/23/19 05:39 Seg Neutrophils # 4.5 K/mm3 (1.8-7.7) 02/23/19 05:39 PT 15.2 Sec. (12.2-14.9) H 02/22/19 13:23 INR 1.23 (0.87-1.13) H 02/22/19 13:23 APTT 31.9 Sec. (24.2-36.6) 02/22/19 13:23 Sodium 134 mmol/L (137-145) L 02/23/19 05:39 Potassium 4.5 mmol/L (3.6-5.0) 02/23/19 05:39 Chloride 91.3 mmol/L (98-107) L 02/23/19 05:39 Carbon Dioxide 24 mmol/L (22-30) 02/23/19 05:39 23 mmol/L 02/23/19 05:39 BUN 32 mg/dL (9-20) H 02/23/19 05:39 6.7 mg/dL (0.8-1.5) H 02/23/19 05:39 Estimated GFR 10 ml/min 02/23/19 05:39 5 % 02/23/19 05:39 Glucose 96 mg/dL (75-100) 02/23/19 05:39 5.2 % (4-6) 02/22/19 23:36 Calcium 9.1 mg/dL (8.4-10.2) 02/23/19 05:39 Phosphorus 8.20 mg/dL (2.5-4.5) H 02/22/19 13:14 0.60 mg/dL (0.1-1.2) 02/23/19 05:39 AST 36 units/L (5-40) 02/23/19 05:39 ALT 46 units/L (7-56) 02/23/19 05:39 94 units/L (35-129) 02/23/19 05:39 NT-Pro-B Natriuret Pep > 61213 pg/mL (0-900) H 02/22/19 13:14 6.6 g/dL (6.3-8.2) 02/23/19 05:39 3.6 g/dL (3.9-5) L 02/23/19 05:39 1.2 % 02/23/19 05:39 Hepatitis A IgM Ab Non-reactive (NonReactive) 02/22/19 17:34 Hep Bs Antigen Non-reactive (Negative) 02/22/19 21:40 Hep B Core IgM Ab Non-reactive (NonReactive) 02/22/19 17:34 Reactive (NonReactive) A 02/22/19 17:34 Active Medications - Current Medications Current Medications: Generic Name Dose Route Start Last Admin Trade Name Freq PRN Reason Stop Dose Admin Acetaminophen 650 mg 02/22/19 21:43 Tylenol PO Q4H PRN Pain MILD(1-3)/Fever >100.5/MICHELE Amlodipine Besylate 5 mg 02/22/19 21:00 02/23/19 10:09 Norvasc PO 5 mg QDAY EDGAR Administration Clonidine HCl 0.1 mg 02/23/19 10:00 02/23/19 10:09 Catapres-Tts Patch TD 0.1 mg Fr EDGAR Administration Hydralazine HCl 10 mg 02/22/19 21:46 02/22/19 22:51 Apresoline IV 10 mg Q3H PRN Administration Blood Pressure Hydromorphone HCl 0.5 mg 02/22/19 21:43 Dilaudid IV Q3H PRN Pain , Severe (7-10) Nicardipine HCl 50 mg/ Sodium 250 mls @ 25 mls/hr 02/22/19 16:00 Chloride IV TITR EDGAR Protocol 5 MG/HR Labetalol HCl 20 mg 02/22/19 17:29 02/22/19 19:53 Normodyne IV 20 mg PRETR PRN Administration Blood Pressure Ondansetron HCl 4 mg 02/22/19 21:43 Zofran IV Q8H PRN Nausea And Vomiting Pantoprazole Sodium 40 mg 02/24/19 10:00 Protonix PO QDAY EDGAR Sodium Chloride 10 ml 02/22/19 22:00 02/23/19 10:09 Sodium Chloride Flush Syringe 10 Ml IV 10 ml BID EDGAR Administration Sodium Chloride 10 ml 02/22/19 21:43 Sodium Chloride Flush Syringe 10 Ml IV PRN PRN LINE FLUSH
[2019-02-23] MEDS: NORMODYNE IV PRN (17:30)
[2019-02-23] MEDS: APRESOLINE IV PRN (22:42)
[2019-02-24 06:10] LABS: Hematocrit 25.7 % (35.5-45.6); Hemoglobin 8.8 gm/dl (11.8-15.2)
[2019-02-24 06:48] LABS: Iron 36 ug/dL (49-181); Total Iron Binding Capacity 120 mcg/dL (250-450)
[2019-02-24] MEDS: PROTONIX PO SCH (09:09)
[2019-02-24] MEDS: NORVASC PO SCH (10:07)
[2019-02-24] MEDS: SODIUM CHLORIDE FLUSH SYRINGE 10 ML IV SCH ×2 (10:07→21:40)
[2019-02-24] MEDS ORDERED: FERRLECIT 250 MG in NACL 0.9% 100 ML IV ONE (10:37)
--- NOTE | 2019-02-24 10:39 | Progress Note ---
Subjective Interval history: Patient was seen today for follow-up on multiple renal related issues Events of this hospitalization noted Currently on dialysis Tuesday Patient denies having any chest pain pressure or shortness of breath Vitals labs intake output medications were reviewed Social history: Reviewed Allergies: Reviewed Family history: Reviewed Physical examination HEENT: Oral mucosa moist no pallor or icterus Neck: Supple no JVD Chest: Clear to auscultation anteriorly CVS: Regular rate and rhythm S1 and S2 heard Abdomen: Soft nontender no suprapubic masses no organomegaly appreciable Extremity: Dry skin less than 1+ peripheral edema Musculoskeletal: No joint effusion noted in knees and ankle Neurological: Alert awake Dermatology: No petechial rashes Psychiatry: No evidence of any agitation and aggression noted Assessment and plan; End-stage renal disease, patient admitted with missing dialysis treatment currently doing well, he is currently on Tuesday dialysis Moderately severe hyperkalemia 7.2 upon admission with uremic symptoms currently doing better Anemia in end-stage renal disease complicated by GI bleed, will give him iron infusion as well as erythropoietin, 20,000 units subcutaneous 1 Noncompliance addressed with patient GI bleed, needs to follow-up with gastroenterology, avoid binders such as Renvela or Renagel Educated about renal diet plan need to comply with treatment recommendation Prognosis guarded to poor will depend on patient's compliance Pertinent lab findings were discussed with patient and patient does exhibit good understanding of renal issues. We'll continue to follow and make recommendation from renal standpoint Objective - Vital Signs Vital signs: Vital Signs - 12hr 02/23/19 02/24/19 02/24/19 23:00 00:44 04:00 Temperature 97.6 F 97.9 F 98.7 F Pulse Rate 96 H 89 Respiratory 16 16 16 Rate Blood Pressure 136/77 Blood Pressure 136/77 156/77 [Left] O2 Sat by Pulse 98 98 Oximetry 02/24/19 08:44 Temperature 98.0 F Pulse Rate Respiratory 18 Rate Blood Pressure 164/86 Blood Pressure [Left] O2 Sat by Pulse Oximetry - Lab 02/24/19 05:26 02/23/19 05:39 Most recent lab results Calcium 9.1 mg/dL (8.4-10.2) 02/23/19 05:39 Phosphorus 8.20 mg/dL (2.5-4.5) H 02/22/19 13:14 Medications & Allergies - Medications Allergies/Adverse Reactions: Allergies Androgenic Anabolic Steroid Allergy (Severe, Verified 02/22/19 12:57) Hives Active Medications: Generic Name Dose Route Start Last Admin Trade Name Freq PRN Reason Stop Dose Admin Acetaminophen 650 mg 02/22/19 21:43 Tylenol PO Q4H PRN Pain MILD(1-3)/Fever >100.5/MICHELE Amlodipine Besylate 5 mg 02/22/19 21:00 02/23/19 10:09 Norvasc PO 5 mg QDAY EDGAR Administration Clonidine HCl 0.1 mg 02/23/19 10:00 02/23/19 10:09 Catapres-Tts Patch TD 0.1 mg Fr EDGAR Administration Hydralazine HCl 10 mg 02/22/19 21:46 02/23/19 22:42 Apresoline IV 10 mg Q3H PRN Administration Blood Pressure Hydromorphone HCl 0.5 mg 02/22/19 21:43 Dilaudid IV Q3H PRN Pain , Severe (7-10) Nicardipine HCl 50 mg/ Sodium 250 mls @ 25 mls/hr 02/22/19 16:00 Chloride IV TITR EDGAR Protocol 5 MG/HR Labetalol HCl 20 mg 02/22/19 17:29 02/23/19 17:30 Normodyne IV 20 mg PRETR PRN Administration Blood Pressure Ondansetron HCl 4 mg 02/22/19 21:43 Zofran IV Q8H PRN Nausea And Vomiting Pantoprazole Sodium 40 mg 02/24/19 10:00 02/24/19 09:09 Protonix PO 40 mg QDAY EDGAR Administration Sodium Chloride 10 ml 02/22/19 22:00 02/23/19 22:43 Sodium Chloride Flush Syringe 10 Ml IV 10 ml BID EDGAR Administration Sodium Chloride 10 ml 02/22/19 21:43 Sodium Chloride Flush Syringe 10 Ml IV PRN PRN LINE FLUSH
[2019-02-24] MEDS ORDERED: PROCRIT SUB-Q ONE (11:00)
--- NOTE | 2019-02-24 14:23 | Progress Note ---
Assessment and Plan Assessment and plan: Patient is a 68 y/o man with history of ESRD on HD, HTN, prostate cancer, hypertension, and medical non-compliance who was admitted after missing dialysis with hypertensive urgency, acute hyperkalemia and BRBPR. I spoke with his [facility] PCP Dr. Urbano at [phone]. His last hemoglobin was 10.7 on 02/21/19 at [facility]. He was seen by his primary care doctor who discontinue his aspirin 81 mg daily, due to nose bleeding. He also was sent to [facility] radiology associates for a CAT scan without contrast which showed bilateral moderate pleural effusion left more than right, small amount of ascites in the pelvis. Otherwise negative CT of the abdomen and pelvis. Today at dialysis his blood pressure was found to be 220s over 120s; therefore; he was sent to ED for further evaluation. Drop in H/H: GI consulted, not sure of their plan Hypertensive urgency, malignant: IV Hydralazine q3 h Prn, Cont antihypertensives Acute GIB: monitor cbc closely Acute hyperkalemia: treated with HD End stage renal disease TTS, noncompliant: counseling done, Nephrology following DVT prophylaxis On SCD's due gib d/c once h/h stabilizes History Interval history: Patient was seen and examined. Follow-up on current diagnosis. No overnight events reported to me. Patient denies any chest pain, shortness breath, nausea/ vomiting or severe headaches. Imaging, nursing note, chart, labs and old chart reviewed. Discussed with patient. Hospitalist Physical - Physical exam Narrative exam: Gen: thin frail, bmi 18.8, NAD, Awake, Alert, Orientated HEENT: NCAT, EOMI, PERRL, OP Clear Neck: supple, no adenopathy, no thyromegaly, no JVD CVS/Heart: RRR, normal S1S2, pulses present bilaterally Chest/Lungs: CTA B, Symmetrical chest expansion, good air entry bilaterally GI/Abdomen: soft, NTND, good bowel sounds, no guarding or rebound /Bladder: no suprapubic tenderness, no CVA or paraspinal tenderness Extermity/Skin: no c/c/e, no obvious rash MSK: FROM x 4 Neuro: CN 2-12 grossly intact, no new focal deficits Psych: calm - Constitutional Vitals: Temp Pulse Resp BP Pulse Ox 98.0 F 89 18 164/86 98 02/24/19 08:44 02/24/19 04:00 02/24/19 08:44 02/24/19 08:44 02/24/19 04:00 General appearance: Present: no acute distress, well-nourished Results - Labs CBC & Chem 7: 02/24/19 05:26 02/23/19 05:39 Labs: Laboratory Last Values WBC 5.5 K/mm3 (4.5-11.0) 02/23/19 05:39 RBC 3.07 M/mm3 (3.65-5.03) L 02/23/19 05:39 Hgb 8.8 gm/dl (11.8-15.2) L 02/24/19 05:26 Hct 25.7 % (35.5-45.6) L 02/24/19 05:26 MCV 95 fl (84-94) H 02/23/19 05:39 MCH 32 pg (28-32) 02/23/19 05:39 MCHC 34 % (32-34) 02/23/19 05:39 RDW 16.6 % (13.2-15.2) H 02/23/19 05:39 Plt Count 170 K/mm3 (140-440) 02/23/19 05:39 Lymph % (Auto) 7.9 % (13.4-35.0) L 02/23/19 05:39 Wells % (Auto) 8.5 % (0.0-7.3) H 02/23/19 05:39 Eos % (Auto) 0.9 % (0.0-4.3) 02/23/19 05:39 Baso % (Auto) 0.7 % (0.0-1.8) 02/23/19 05:39 Lymph # 0.4 K/mm3 (1.2-5.4) L 02/23/19 05:39 Wells # 0.5 K/mm3 (0.0-0.8) 02/23/19 05:39 Eos # 0.0 K/mm3 (0.0-0.4) 02/23/19 05:39 Baso # 0.0 K/mm3 (0.0-0.1) 02/23/19 05:39 Seg Neutrophils % 82.0 % (40.0-70.0) H 02/23/19 05:39 Seg Neutrophils # 4.5 K/mm3 (1.8-7.7) 02/23/19 05:39 PT 15.2 Sec. (12.2-14.9) H 02/22/19 13:23 INR 1.23 (0.87-1.13) H 02/22/19 13:23 APTT 31.9 Sec. (24.2-36.6) 02/22/19 13:23 Sodium 134 mmol/L (137-145) L 02/23/19 05:39 Potassium 4.5 mmol/L (3.6-5.0) 02/23/19 05:39 Chloride 91.3 mmol/L (98-107) L 02/23/19 05:39 Carbon Dioxide 24 mmol/L (22-30) 02/23/19 05:39 23 mmol/L 02/23/19 05:39 BUN 32 mg/dL (9-20) H 02/23/19 05:39 6.7 mg/dL (0.8-1.5) H 02/23/19 05:39 Estimated GFR 10 ml/min 02/23/19 05:39 5 % 02/23/19 05:39 Glucose 96 mg/dL (75-100) 02/23/19 05:39 5.2 % (4-6) 02/22/19 23:36 Calcium 9.1 mg/dL (8.4-10.2) 02/23/19 05:39 Phosphorus 8.20 mg/dL (2.5-4.5) H 02/22/19 13:14 Iron 36 ug/dL (49-181) L 02/24/19 05:26 TIBC 120 mcg/dL (250-450) L 02/24/19 05:26 > 2000.0 ng/mL (13.0-400.0) H 02/24/19 05:26 0.60 mg/dL (0.1-1.2) 02/23/19 05:39 AST 36 units/L (5-40) 02/23/19 05:39 ALT 46 units/L (7-56) 02/23/19 05:39 94 units/L (35-129) 02/23/19 05:39 NT-Pro-B Natriuret Pep > 54434 pg/mL (0-900) H 02/22/19 13:14 6.6 g/dL (6.3-8.2) 02/23/19 05:39 3.6 g/dL (3.9-5) L 02/23/19 05:39 1.2 % 02/23/19 05:39 Vitamin B12 1070 pg/mL (211-911) H 02/24/19 05:26 > 20.0 ng/mL (7.3-26.0) 02/24/19 05:26 Hepatitis A IgM Ab Non-reactive (NonReactive) 02/22/19 17:34 Hep Bs Antigen Non-reactive (Negative) 02/22/19 21:40 Hep B Core IgM Ab Non-reactive (NonReactive) 02/22/19 17:34 Reactive (NonReactive) A 02/22/19 17:34 Active Medications - Current Medications Current Medications: Generic Name Dose Route Start Last Admin Trade Name Freq PRN Reason Stop Dose Admin Acetaminophen 650 mg 02/22/19 21:43 Tylenol PO Q4H PRN Pain MILD(1-3)/Fever >100.5/MICHELE Amlodipine Besylate 5 mg 02/22/19 21:00 02/23/19 10:09 Norvasc PO 5 mg QDAY EDGAR Administration Clonidine HCl 0.1 mg 02/23/19 10:00 02/23/19 10:09 Catapres-Tts Patch TD 0.1 mg Fr EDGAR Administration Hydralazine HCl 10 mg 02/22/19 21:46 02/23/19 22:42 Apresoline IV 10 mg Q3H PRN Administration Blood Pressure Hydromorphone HCl 0.5 mg 02/22/19 21:43 Dilaudid IV Q3H PRN Pain , Severe (7-10) Nicardipine HCl 50 mg/ Sodium 250 mls @ 25 mls/hr 02/22/19 16:00 Chloride IV TITR EDGAR Protocol 5 MG/HR Labetalol HCl 20 mg 02/22/19 17:29 02/23/19 17:30 Normodyne IV 20 mg PRETR PRN Administration Blood Pressure Ondansetron HCl 4 mg 02/22/19 21:43 Zofran IV Q8H PRN Nausea And Vomiting Pantoprazole Sodium 40 mg 02/24/19 10:00 02/24/19 09:09 Protonix PO 40 mg QDAY EDGAR Administration Sodium Chloride 10 ml 02/22/19 22:00 02/23/19 22:43 Sodium Chloride Flush Syringe 10 Ml IV 10 ml BID EDGAR Administration Sodium Chloride 10 ml 02/22/19 21:43 Sodium Chloride Flush Syringe 10 Ml IV PRN PRN LINE FLUSH
[2019-02-24] MEDS ORDERED: PROCRIT ONE (18:15)
--- NOTE | 2019-02-24 19:36 | Gastroenterology Progress Note ---
Assessment and Plan - Patient Problems (1) Rectal bleeding Current Visit: Yes Status: Acute Plan to address problem: - Hx of negative colonoscopy approx 6 months ago at [place] (records requested) and hx of radiation to prostate. - Likely self-limited, and now appears stopped. - Will monitor conservatively; patient may d/c home if stable to f/u in the clinic. - Suspect some chronic anemia issues given ESRD and comorbids - Would avoid all NSAIDs, and use anticoagulation with caution given bleeding risk from comorbids. Subjective Date of service: 02/24/19 Principal diagnosis: Rectal Bleed Interval history: The patient is eating dinner without N/V/abdominal pain. He has had no bleeding this afternoon. Objective - Constitutional Vitals: Temp Pulse Resp BP Pulse Ox 98.2 F 89 18 142/86 98 02/24/19 14:25 02/24/19 14:25 02/24/19 14:25 02/24/19 14:25 02/24/19 04:00 General appearance: no acute distress - Respiratory Respiratory effort: normal Respiratory: bilateral: CTA - Cardiovascular Rhythm: regular Heart Sounds: Present: S1 & S2 - Gastrointestinal General gastrointestinal: Present: soft, non-tender, non-distended - Labs CBC & Chem 7: 02/24/19 05:26 02/23/19 05:39 Labs: Laboratory Results - last 24 hr 02/24/19 02/24/19 02/24/19 05:26 05:26 05:26 Hgb 8.8 L Hct 25.7 L Iron 36 L TIBC 120 L Ferritin > 2000.0 H Vitamin B12 Folate 02/24/19 02/24/19 05:26 05:26 Hgb Hct Iron TIBC Ferritin Vitamin B12 1070 H Folate > 20.0
[2019-02-25 09:32] VITALS: BP 147/70
[2019-02-25 09:36] LABS: Basophils # (Auto) 0.1 K/mm3 (0.0-0.1); Basophils % (Auto) 1.2 % (0.0-1.8); Eosinophils # (Auto) 0.4 K/mm3 (0.0-0.4); Eosinophils % (Auto) 9.4 % (0.0-4.3); Hematocrit 28.9 % (35.5-45.6); Hemoglobin 9.7 gm/dl (11.8-15.2); Lymphocytes # (Auto) 0.6 K/mm3 (1.2-5.4); Lymphocytes % (Auto) 13.3 % (13.4-35.0); Mean Corpuscular HGB Conc 34 % (32-34); Mean Corpuscular Volume 96 fl (84-94); Monocytes # (Auto) 0.5 K/mm3 (0.0-0.8); Monocytes % (Auto) 10.1 % (0.0-7.3); Platelet Count 174 K/mm3 (140-440); Red Blood Count 3.01 M/mm3 (3.65-5.03); Red Cell Distribution Width 16.2 % (13.2-15.2)
[2019-02-25] MEDS: NORVASC PO SCH (09:53)
[2019-02-25] MEDS: PROTONIX PO SCH (09:53)
[2019-02-25] MEDS: SODIUM CHLORIDE FLUSH SYRINGE 10 ML IV SCH (09:54)
--- NOTE | 2019-02-25 10:32 | Gastroenterology Progress Note ---
Assessment and Plan - Patient Problems (1) Rectal bleeding Current Visit: Yes Status: Acute Plan to address problem: - Hx of negative colonoscopy approx 6-8 months ago at [place] (records requested) and hx of radiation to prostate. - Likely self-limited, and now appears stopped. - Will monitor conservatively; patient may d/c home today if hct stable to f/u in the clinic. - Suspect some chronic anemia issues given ESRD and comorbids - Would avoid all NSAIDs, and use anticoagulation with caution given bleeding risk from comorbids. Subjective Date of service: 02/25/19 Principal diagnosis: Rectal Bleed Interval history: The patient is eating a regular diet and has had no further bleeding, and denies abdominal pain. HD was tolerated yesterday without event. Objective - Constitutional Vitals: Temp Pulse Resp BP Pulse Ox 98.1 F 83 14 147/70 99 02/25/19 09:27 02/25/19 09:53 02/25/19 09:27 02/25/19 09:53 02/25/19 09:27 General appearance: no acute distress - Respiratory Respiratory effort: normal Respiratory: bilateral: CTA - Cardiovascular Rhythm: regular Heart Sounds: Present: S1 & S2 - Gastrointestinal General gastrointestinal: Present: soft, non-tender, non-distended - Labs CBC & Chem 7: 02/25/19 09:12 02/23/19 05:39 Labs: Laboratory Results - last 24 hr 02/25/19 09:12 WBC 4.7 RBC 3.01 L Hgb 9.7 L Hct 28.9 L MCV 96 H MCH 32 MCHC 34 RDW 16.2 H Plt Count 174 Lymph % (Auto) 13.3 L [place]ill % (Auto) 10.1 H Eos % (Auto) 9.4 H Baso % (Auto) 1.2 Lymph # 0.6 L [place] # 0.5 Eos # 0.4 Baso # 0.1 Seg Neutrophils % 66.0 Seg Neutrophils # 3.1
--- NOTE | 2019-02-25 10:54 | Discharge Summary ---
Providers - Providers Date of Admission: 02/22/19 15:57 Date of discharge: 02/25/19 Attending physician: ALEXX DENNIS 02/22/19 21:43 Consult to Physician [CONS] Routine Comment: Consulting Provider: ARSLAN NEUMANN Physician Instructions: Reason For Exam: GI Bleed 02/22/19 21:47 Consult to Physician [CONS] Routine Comment: Consulting Provider: VINICIO VARGAS Physician Instructions: Reason For Exam: esrd 02/23/19 13:12 Physical Therapy Evaluation and Treat [CONS] Routine Comment: Reason For Exam: weakness Hospitalization Condition: Stable Hospital course: Patient is a 68 y/o man with history of ESRD on HD, HTN, prostate cancer, hypertension, and medical non-compliance who was admitted after missing dialysis with hypertensive urgency, acute hyperkalemia and BRBPR. I spoke with his [facility] PCP Dr. Urbano at [phone]. His last hemoglobin was 10.7 on 02/21/19 at [facility]. He was seen by his primary care doctor who discontinue his aspirin 81 mg daily, due to nose bleeding. He also was sent to [facility] radiology associates for a CAT scan without contrast which showed bilateral moderate pleural effusion left more than right, small amount of ascites in the pelvis. Otherwise negative CT of the abdomen and pelvis. Today at dialysis his blood pressure was found to be 220s over 120s; therefore; he was sent to ED for furthe r evaluation. Discharge Diagnoses: Acute blood loss anemia Hypertensive urgency, malignant Acute GIB Acute hyperkalemia Mild malnutrition, bmi 18.8, poa End stage renal disease TTS, noncompliant: counseling done Disposition: TO HOME OR SELFCARE Time spent for discharge: 33 minutes Core Measure Documentation - Palliative Care Palliative Care/ Comfort Measures: Not Applicable - Core Measures Any of the following diagnoses?: none - VTE Discharge Requirements Deep Vein Thrombosis/Pulmonary Embolism Present on Admission: No Has pt received <5 days of overlap therapy or INR<2.0: No Anticoagulant overlap therapy prescribed at discharge: No Contraindication No Overlap Therapy order at DC: Not Indicated Exam - Physical Exam Narrative exam: Gen: thin frail, bmi 18.8, NAD, Awake, Alert, Orientated HEENT: NCAT, EOMI, PERRL, OP Clear Neck: supple, no adenopathy, no thyromegaly, no JVD CVS/Heart: RRR, normal S1S2, pulses present bilaterally Chest/Lungs: CTA B, Symmetrical chest expansion, good air entry bilaterally GI/Abdomen: soft, NTND, good bowel sounds, no guarding or rebound /Bladder: no suprapubic tenderness, no CVA or paraspinal tenderness Extermity/Skin: no c/c/e, no obvious rash MSK: FROM x 4 Neuro: CN 2-12 grossly intact, no new focal deficits Psych: calm - Constitutional Vitals: Temp Pulse Resp BP Pulse Ox 98.1 F 83 14 147/70 99 02/25/19 09:27 02/25/19 09:53 02/25/19 09:27 02/25/19 09:53 02/25/19 09:27 Plan Activity: other (no strenous activity unless cleared by PCP) Diet: renal Special Instructions: record daily BP diary Follow up with: BLAYNE MEADE [Other] - 3-5 Days VINICIO VARGAS MD [Staff Physician] - 7 Days ARSLAN NEUMANN MD [Staff Physician] - 7 Days Forms: Accompanied Note Prescriptions: cloNIDine-TTS PATCH [Catapres-Tts 0.1MG Patch] 0.1 mg TD Fr #4 patch Pantoprazole [Protonix TAB] 40 mg PO QDAY #14 tablet
--- NOTE | 2019-02-25 11:24 | Progress Note ---
Subjective Principal diagnosis: Rectal Bleed Interval history: Patient was seen today for follow-up on multiple renal related issues Events of this hospitalization noted Patient is being discharged today Tolerated dialysis treatment fairly well Currently on dialysis Tuesday Patient denies having any chest pain pressure or shortness of breath Vitals labs intake output medications were reviewed Social history: Reviewed Allergies: Reviewed Family history: Reviewed Physical examination HEENT: Oral mucosa moist no pallor or icterus Neck: Supple no JVD Chest: Clear to auscultation anteriorly CVS: Regular rate and rhythm S1 and S2 heard Abdomen: Soft nontender no suprapubic masses no organomegaly appreciable Extremity: Dry skin less than 1+ peripheral edema Musculoskeletal: No joint effusion noted in knees and ankle Neurological: Alert awake Dermatology: No petechial rashes Psychiatry: No evidence of any agitation and aggression noted Assessment and plan; End-stage renal disease, patient admitted with missing dialysis treatment currently doing well, he is currently on Tuesday dialysis Discussed about compliance advised to work on that or else his prognosis and mortality risk is going to be high Dictated about all the hospital related comorbidities Anemia complicated by GI bleed iron and erythropoietin , patient will need to get periodically Also advised to make a follow-up appointment with gastroenterology Suggested to avoid binders such as Renvela and Renagel Advised to make an appointment office for follow-up upon discharge We'll continue to follow and make recommendation from renal standpoint Objective - Vital Signs Vital signs: Vital Signs - 12hr 02/25/19 02/25/19 02/25/19 00:00 04:00 05:48 Temperature 97.6 F Pulse Rate 87 83 Respiratory 16 Rate Blood Pressure Blood Pressure 153/82 [Left] O2 Sat by Pulse 98 99 Oximetry 02/25/19 02/25/19 09:27 09:53 Temperature 98.1 F Pulse Rate 83 83 Respiratory 14 Rate Blood Pressure 147/70 147/70 Blood Pressure [Left] O2 Sat by Pulse 99 Oximetry - Lab 02/25/19 09:12 02/23/19 05:39 Most recent lab results Calcium 9.1 mg/dL (8.4-10.2) 02/23/19 05:39 Phosphorus 8.20 mg/dL (2.5-4.5) H 02/22/19 13:14 Medications & Allergies - Medications Allergies/Adverse Reactions: Allergies Androgenic Anabolic Steroid Allergy (Severe, Verified 02/22/19 12:57) Hives Home Medications: Home Medications Medication Instructions Recorded Confirmed Last Taken Type Pantoprazole [Protonix TAB] 40 mg PO QDAY #14 tablet 02/25/19 Unknown Rx amLODIPine [Norvasc] 5 mg PO QDAY #30 tablet 02/25/19 Unknown Rx cloNIDine-TTS PATCH [Catapres-Tts 0.1 mg TD Fr #4 patch 02/25/19 Unknown Rx 0.1MG Patch] Active Medications: Generic Name Dose Route Start Last Admin Trade Name Freq PRN Reason Stop Dose Admin Acetaminophen 650 mg 02/22/19 21:43 Tylenol PO Q4H PRN Pain MILD(1-3)/Fever >100.5/MICHELE Amlodipine Besylate 5 mg 02/22/19 21:00 02/25/19 09:53 Norvasc PO 5 mg QDAY EDGAR Administration Clonidine HCl 0.1 mg 02/23/19 10:00 02/23/19 10:09 Catapres-Tts Patch TD 0.1 mg Fr EDGAR Administration Hydralazine HCl 10 mg 02/22/19 21:46 02/23/19 22:42 Apresoline IV 10 mg Q3H PRN Administration Blood Pressure Hydromorphone HCl 0.5 mg 02/22/19 21:43 Dilaudid IV Q3H PRN Pain , Severe (7-10) Nicardipine HCl 50 mg/ Sodium 250 mls @ 25 mls/hr 02/22/19 16:00 Chloride IV TITR EDGAR Protocol 5 MG/HR Labetalol HCl 20 mg 02/22/19 17:29 02/23/19 17:30 Normodyne IV 20 mg PRETR PRN Administration Blood Pressure Ondansetron HCl 4 mg 02/22/19 21:43 Zofran IV Q8H PRN Nausea And Vomiting Pantoprazole Sodium 40 mg 02/24/19 10:00 02/25/19 09:53 Protonix PO 40 mg QDAY EDGAR Administration Sodium Chloride 10 ml 02/22/19 22:00 02/25/19 09:54 Sodium Chloride Flush Syringe 10 Ml IV 10 ml BID EDGAR Administration Sodium Chloride 10 ml 02/22/19 21:43 Sodium Chloride Flush Syringe 10 Ml IV PRN PRN LINE FLUSH
== END 2019-02-25 17:16 | disposition home or self-care (01) | DRG 377 ==
LOC: EDBD → ED 12:25 → 4A 15:57
PROVIDERS: ADMIT Internal Medicine; ATTEND Internal Medicine
PROC: 5A1D70Z Performance of Urinary Filtration, Intermittent, Less than 6 Hours Per Day (ICD-10-PCS; principal; 2019-02-22)
PROC: 5A1D70Z Performance of Urinary Filtration, Intermittent, Less than 6 Hours Per Day (ICD-10-PCS; 2019-02-24)
DX: K92.2 Gastrointestinal hemorrhage, unspecified (principal); N18.6 End stage renal disease; I12.0 Hypertensive chronic kidney disease with stage 5 chronic kidney disease or end stage renal disease; J90 Pleural effusion, not elsewhere classified; R18.8 Other ascites; N25.81 Secondary hyperparathyroidism of renal origin; D62 Acute posthemorrhagic anemia; E44.1 Mild protein-calorie malnutrition; Z68.1 Body mass index [BMI] 19.9 or less, adult; E87.2 Acidosis; E87.5 Hyperkalemia; I16.0 Hypertensive urgency; E11.22 Type 2 diabetes mellitus with diabetic chronic kidney disease; D63.1 Anemia in chronic kidney disease; Z99.2 Dependence on renal dialysis; Z87.891 Personal history of nicotine dependence; Z91.15 Patient's noncompliance with renal dialysis; Z85.46 Personal history of malignant neoplasm of prostate
CPT/HCPCS: 36415; 71045; 80048; 80053; 80074; 82607; 82728; 82747; 83036; 83550; 83880; 84100; 85014; 85018; 85025; 85610; 85730; 86706; 96374; G0378; C9113; J0360; J0610; J0885; J1815; J2916; J7050